=== PATIENT | female | born 1985 | race Caucasian/White ===

== ENCOUNTER 2017-01-29 08:17 | Emergency (ER) | payer MEDICAID ==
[~2017-01-29] VITALS: Ht 172.7 cm; Wt 86.6 kg
[~2017-01-29 08:17] MED LIST: CYCL1TAB29 PO; IBUP-232 PO
[2017-01-29 08:19] VITALS: BP 149/86; PULSE 87; RESP 16; TEMP 97.9; O2SAT 98
[2017-01-29] MEDS ORDERED: SODIUM CHLOR 0.9% 1000 ML INJ 1,000 ML IV ONE (08:55)
--- NOTE | 2017-01-29 09:00 | PD ---
HPI Chief Complaint: Related Problem Time Seen by Provider: 08:41 Travel History International Travel<30 days: No Contact w/Intl Traveler<30days: No Traveled to known affect area: No History of Present Illness HPI The patient is a 31-year-old female who presents emergency department for abdominal cramping and vaginal spotting in . The patient is a with one previous right sided ectopic requiring surgery. The patient's last menstrual cycle December 20, 2016. The patient had a positive at home test. The patient was sent from [place] emergency department to [place] for ultrasound to rule out ectopic . The patient denies any previous administration of RhoGAM. The patient does have a history of cervical cancer including cone biopsy and is currently being followed by a inside upholsterer in [place]. The patient does note mild spotting with lower abdominal cramping. She denies any dysuria, frequency, urgency, nausea, or vomiting. She denies any fever. Symptoms are moderate, there are no current alleviating factors, possibly exacerbated by . PFSH Past Medical History Cancer: Yes (CERVICAL) Diminished Hearing: No ?: LMP: 12/20/16 Ectopic : Yes Past Surgical History Section: Yes Cholecystectomy: Yes Gynecologic Surgery: Yes Social History Alcohol Use: No Tobacco Use: No Substance Use: No Allergies-Medications (Allergen,Severity, Reaction): Coded Allergies: No Known Allergies (Verified Allergy, Unknown, 01/29/17) Reported Meds & Prescriptions Reported Meds & Active Scripts Active Ibuprofen 600 Mg Tab 600 Mg PO Q8H PRN Review of Systems Except as stated in HPI: all other systems reviewed are Neg Cardiovascular: No: Chest Pain or Discomfort Respiratory: No: Shortness of Breath Gastrointestinal: Positive: Abdominal Pain (lower abdominal cramping), No: Nausea, Vomiting Genitourinary: Positive: Pelvic Pain (cramping), Vaginal Bleeding (spotting) Physical Exam Narrative GENERAL: Awake, alert, pleasant 31-year-old female who appears her stated age and is in no acute respiratory distress. SKIN: Focused skin assessment warm/dry. Multiple tattoos noted. HEAD: Atraumatic. Normocephalic. EYES: No injection or drainage. ENT: No nasal bleeding or discharge. Mucous membranes pink and moist. NECK: Trachea midline. No JVD. CARDIOVASCULAR: Regular rate and rhythm. No murmur appreciated. RESPIRATORY: No accessory muscle use. Clear to auscultation. Breath sounds equal bilaterally. GASTROINTESTINAL: Abdomen soft, non-tender, nondistended. No rebound tenderness. Back: No CVA tenderness. Pelvic: The patient deferred. MUSCULOSKELETAL: No obvious deformities. No clubbing. No cyanosis. No edema. NEUROLOGICAL: Awake and alert. No obvious cranial nerve deficits. Motor grossly within normal limits. Normal speech. PSYCHIATRIC: Appropriate mood and affect; insight and judgment normal. Data Data Last Documented VS Vital Signs Date Time Temp Pulse Resp B/P (MAP) Pulse Ox O2 Delivery O2 Flow Rate FiO2 01/29/17 08:19 97.9 87 16 149/86 (107) 98 Orders Orders Beta Hcg (Quant/Titer) (01/29/17 08:55) Complete Blood Count With Diff (01/29/17 08:55) Basic Metabolic Panel (Bmp) (01/29/17 08:55) Complete Rh (01/29/17 08:55) Us Pelvis (Ques Pr/Ect)W Trans (01/29/17 ) Urinalysis - C+S If Indicated (01/29/17 08:55) Iv Access Insert/Monitor (01/29/17 08:55) Sodium Chlor 0.9% 1000 Ml Inj (Ns 1000 M (01/29/17 08:55) Ed Urine Pregnancytest Poc (01/29/17 08:55) Ed Discharge Order (01/29/17 11:22) Labs Laboratory Tests Test 01/29/17 09:30 White Blood Count 9.9 TH/MM3 Red Blood Count 4.22 MIL/MM3 Hemoglobin 13.5 GM/DL Hematocrit 39.4 % Mean Corpuscular Volume 93.2 FL Mean Corpuscular Hemoglobin 32.1 PG Mean Corpuscular Hemoglobin Concent 34.4 % Red Cell Distribution Width 14.5 % Platelet Count 178 TH/MM3 Mean Platelet Volume 10.4 FL Neutrophils (%) (Auto) 76.8 % Lymphocytes (%) (Auto) 15.6 % Monocytes (%) (Auto) 5.9 % Eosinophils (%) (Auto) 1.4 % Basophils (%) (Auto) 0.3 % Neutrophils # (Auto) 7.6 TH/MM3 Lymphocytes # (Auto) 1.5 TH/MM3 Monocytes # (Auto) 0.6 TH/MM3 Eosinophils # (Auto) 0.1 TH/MM3 Basophils # (Auto) 0.0 TH/MM3 CBC Comment DIFF FINAL Differential Comment Urine Color YELLOW Urine Turbidity CLEAR Urine pH 6.0 Urine Specific [place] 1.007 Urine Protein NEG mg/dL Urine Glucose (UA) NEG mg/dL Urine Ketones NEG mg/dL Urine Occult Blood LARGE Urine Nitrite NEG Urine Bilirubin NEG Urine Urobilinogen LESS THAN 2.0 MG/DL Urine Leukocyte Esterase SMALL Urine RBC 19 /hpf Urine WBC 7 /hpf Urine Squamous Epithelial Cells 1 /hpf Urine Bacteria OCC /hpf Urine Hyaline Casts 1 /lpf Urine Mucus FEW /lpf Microscopic Urinalysis Comment CULT NOT INDICATED Blood Urea Nitrogen 5 MG/DL Creatinine 0.59 MG/DL Random Glucose 82 MG/DL Calcium Level 8.2 MG/DL Sodium Level 140 MEQ/L Potassium Level 3.6 MEQ/L Chloride Level 109 MEQ/L Carbon Dioxide Level 25.2 MEQ/L Anion Gap 6 MEQ/L Estimat Glomerular Filtration Rate 118 ML/MIN Human Chorionic Gonadotropin, Quant 45 MIU/ML MDM Medical Decision Making Medical Screen Exam Complete: Yes Emergency Medical Condition: Yes Medical Record Reviewed: Yes Interpretation(s) Laboratory Tests Test 01/29/17 09:30 White Blood Count 9.9 TH/MM3 Red Blood Count 4.22 MIL/MM3 Hemoglobin 13.5 GM/DL Hematocrit 39.4 % Mean Corpuscular Volume 93.2 FL Mean Corpuscular Hemoglobin 32.1 PG Mean Corpuscular Hemoglobin Concent 34.4 % Red Cell Distribution Width 14.5 % Platelet Count 178 TH/MM3 Mean Platelet Volume 10.4 FL Neutrophils (%) (Auto) 76.8 % Lymphocytes (%) (Auto) 15.6 % Monocytes (%) (Auto) 5.9 % Eosinophils (%) (Auto) 1.4 % Basophils (%) (Auto) 0.3 % Neutrophils # (Auto) 7.6 TH/MM3 Lymphocytes # (Auto) 1.5 TH/MM3 Monocytes # (Auto) 0.6 TH/MM3 Eosinophils # (Auto) 0.1 TH/MM3 Basophils # (Auto) 0.0 TH/MM3 CBC Comment DIFF FINAL Differential Comment Urine Color YELLOW Urine Turbidity CLEAR Urine pH 6.0 Urine Specific [place] 1.007 Urine Protein NEG mg/dL Urine Glucose (UA) NEG mg/dL Urine Ketones NEG mg/dL Urine Occult Blood LARGE Urine Nitrite NEG Urine Bilirubin NEG Urine Urobilinogen LESS THAN 2.0 MG/DL Urine Leukocyte Esterase SMALL Urine RBC 19 /hpf Urine WBC 7 /hpf Urine Squamous Epithelial Cells 1 /hpf Urine Bacteria OCC /hpf Urine Hyaline Casts 1 /lpf Urine Mucus FEW /lpf Microscopic Urinalysis Comment CULT NOT INDICATED Blood Urea Nitrogen 5 MG/DL Creatinine 0.59 MG/DL Random Glucose 82 MG/DL Calcium Level 8.2 MG/DL Sodium Level 140 MEQ/L Potassium Level 3.6 MEQ/L Chloride Level 109 MEQ/L Carbon Dioxide Level 25.2 MEQ/L Anion Gap 6 MEQ/L Estimat Glomerular Filtration Rate 118 ML/MIN Human Chorionic Gonadotropin, Quant 45 MIU/ML Differential Diagnosis Differential diagnosis includes , threatened AB, incomplete AB, ectopic , UTI, cervicitis, PID. Narrative Course IV was established, labs are drawn and sent, and the patient was placed on cardiac telemetry monitoring and continuous pulse oximetry monitoring. Bedside UA test was obtained. Ultrasound was ordered to rule out ectopic . The patient was administered IV fluids. The patient deferred a pelvic exam. Ultrasound does not reveal an IUP, does appear to be blood products in the cervical canal. Beta hCG was only 45. The patient is advised to have repeat beta hCG in 48-72 hours to evaluate if the numbers falling and consistent with spontaneous . The patient agrees and understands. The patient is a positive, therefore, no indication for RhoGAM. Diagnosis Primary Impression: Threatened Patient Instructions: General Instructions Additional Instructions: Please provide a patient a copy of her labs and ultrasound results at discharge. Repeat beta hCG in 48-72 hours. Return sooner symptoms worsen or progress. Med/Other Pt SpecificInfo: No Change to Meds Disposition: 01 DISCHARGE HOME Condition: Stable Isreal Willard MD Jan 29, 2017 09:00
[2017-01-29 10:04] LABS: AUTOMATED NEUTROPHIL # 7.6 TH/MM3 (1.8-7.7); BASOPHIL % 0.3 % (0.0-2.0); EOSINOPHIL # 0.1 TH/MM3 (0-0.4); EOSINOPHIL % 1.4 % (0.0-4.0); HEMATOCRIT 39.4 % (35.0-46.0); HEMOGLOBIN 13.5 GM/DL (11.6-15.3); LYMPH % 15.6 % (9.0-44.0); LYMPHOCYTE # 1.5 TH/MM3 (1.0-4.8); MEAN CELL VOLUME 93.2 FL (80.0-100.0); MEAN CORPUSCULAR HEMOGLOBIN 32.1 PG (27.0-34.0); MEAN CORPUSCULAR HGB CONC 34.4 % (32.0-36.0); MEAN PLATELET VOLUME 10.4 FL (7.0-11.0); MONO % 5.9 % (0.0-8.0); MONOCYTE # 0.6 TH/MM3 (0-0.9); NEUT % 76.8 % (16.0-70.0); PLATELET COUNT 178 TH/MM3 (150-450); RED BLOOD COUNT 4.22 MIL/MM3 (4.00-5.30); RED CELL DISTRIBUTION WIDTH 14.5 % (11.6-17.2); WHITE BLOOD COUNT 9.9 TH/MM3 (4.0-11.0)
[2017-01-29 10:07] LABS: BACTERIA, URINE OCC /hpf; BILIRUBIN, URINE NEG (NEG); BLOOD, URINE LARGE (NEG); GLUCOSE,URINE NEG (NEG); HYALINE CAST, URINE 1 /lpf (RARE); KETONE, URINE NEG (NEG); MUCUS URINE FEW /lpf (OCC); NITRITE,URINE NEG (NEG); SQUAMOUS EPITHELIAL CELL URINE 1 /hpf (0-5); URINE COLOR YELLOW (YELLW/STRAW); URINE LEUKOCYTE ESTERASE SMALL (NEG)
[2017-01-29 10:25] LABS: BICARBONATE 25.2 MEQ/L (21.0-32.0); CALCIUM 8.2 MG/DL (8.5-10.1); CREATININE 0.59 MG/DL (0.50-1.00)
--- NOTE | 2017-01-29 11:07 | RADRPT ---
EXAM DATE/TIME: 01/29/2017 10:06 [facility] COMPARISON: No previous studies available for comparison. INDICATIONS : Pelvic pain and bleeding with . LAB(S): Beta-hC MEDICAL HISTORY : Miscarriage x 3. Ectopic . Cervical cancer. SURGICAL HISTORY : section. Cholecystectomy. Cone biopsy. ENCOUNTER: Initial ACUITY: 1 day PAIN SCORE: 2/10 LOCATION: Bilateral pelvis MEASUREMENTS: UTERUS: 8.8 x 7.2 x 4.7 cm ENDOMETRIAL STRIPE: 12 mm RIGHT OVARY: 3.2 x 2.6 x 1.9 cm LEFT OVARY: 3.5 x 2.5 x 1.8 cm FREE FLUID: No CROWN RUMP LENGTH: Non visualized. = WKS DAYS FHR: Non visualized. BPM FINDINGS: UTERUS: Multiple small cysts in the region of the cervix measuring up to 3 mm consistent with nabothian cysts . Otherwise, no myometrial mass. The endometrial stripe is slightly heterogeneous and prominent. Smal l amount of heterogeneous fluid in the cervical canal. No definitive intrauterine gestational sac. RIGHT OVARY: Ovary contains no mass or significant cystic lesion. LEFT OVARY: Ovary contains no mass or significant cystic lesion. MISCELLANEOUS: No free fluid. CONCLUSION: 1. No definite intrauterine gestational sac or ectopic identified. Continued surveillance i s recommended. 2. Heterogeneously prominent endometrial stripe with small amount of heterogeneous fluid in the cervi jana canal which may reflect blood products. 3. No significant pelvic free fluid. Dutch Montiel MD on January 29, 2017 at 11:02 Board Certified Radiologist. This report was verified electronically.
[2017-01-29 11:37] VITALS: BP 124/78
== END 2017-01-29 11:52 | disposition home or self-care (01) ==
LOC: NEPE 08:17
DX: O20.0 Threatened abortion (principal)
CPT/HCPCS: 76700; 76817; 80048; 81001; 84702; 84703; 85025; 86901

== ENCOUNTER 2017-04-16 18:10 | Emergency (ER) | payer MEDICAID ==
[~2017-04-16 18:10] MED LIST changes: -CYCL1TAB29 PO
[2017-04-16 18:13] VITALS: BP 178/93; PULSE 106; RESP 16; TEMP 98.2; O2SAT 99
--- NOTE | 2017-04-16 20:50 | PD ---
HPI Chief Complaint: Musculoskeletal Complaint Time Seen by Provider: 18:25 Travel History International Travel<30 days: No Contact w/Intl Traveler<30days: No Traveled to known affect area: No History of Present Illness HPI Pt is a well-appearing 31-year-old female who is presenting to emergency department for evaluation of mid upper back pain that is between her shoulder blades bilaterally. She states the pain initially started in 2013. Patient states that her primary doctor has given her muscle relaxers, anti- inflammatories, pain medications but nothing alleviates her pain. Pain has not changed in nature but is more intense today. She denies any new injury or trauma. She denies any shortness of breath, chest pain, fever, chills, headache. Patient is not taking anything to alleviate the pain, she states nothing helps so she doesn't take any medicines. PFSH Past Medical History Cancer: Yes (CERVICAL) Diminished Hearing: No LMP: 03/28/17 Ectopic : Yes Past Surgical History Section: Yes Cholecystectomy: Yes Gynecologic Surgery: Yes Social History Alcohol Use: No Tobacco Use: No Substance Use: No Allergies-Medications (Allergen,Severity, Reaction): Coded Allergies: No Known Allergies (Verified Allergy, Unknown, 01/29/17) Reported Meds & Prescriptions Reported Meds & Active Scripts Active Ibuprofen 600 Mg Tab 600 Mg PO Q8H PRN Review of Systems Except as stated in HPI: all other systems reviewed are Neg Musculoskeletal: Positive: Myalgias, Arthralgias Physical Exam Narrative GENERAL: Well-developed, well-nourished, well-appearing female. Presenting in no acute distress. SKIN: Warm and dry. HEAD: Normocephalic. EYES: No scleral icterus. No injection or drainage. CARDIOVASCULAR: Mildly tachycardic RESPIRATORY: No accessory muscle use. Data Data Last Documented VS Vital Signs Date Time Temp Pulse Resp B/P (MAP) Pulse Ox O2 Delivery O2 Flow Rate FiO2 04/16/17 18:13 98.2 106 16 178/93 (121) 99 MDM Medical Decision Making Medical Screen Exam Complete: Yes Emergency Medical Condition: Yes Interpretation(s) Vital Signs Date Time Temp Pulse Resp B/P (MAP) Pulse Ox O2 Delivery O2 Flow Rate FiO2 04/16/17 18:13 98.2 106 16 178/93 (121) 99 Differential Diagnosis Sprain versus strain versus discogenic pain versus spasm versus other Narrative Course Patient's 31-year-old female presenting for evaluation of chronic back pain that was exacerbated this morning. There was no new injury or trauma. Patient is well-appearing, is mildly tachycardic on arrival however she is appears well. Patient is awaiting bed placement. Patient presented back to triage, she was upset at how long she had to wait. Patient was reassured that we were trying to get her as soon as possible however she continued to get verbally aggressive and then stormed out of the emergency department. AMA: The risks of leaving against medical advice without further evaluation treatment were discussed with the patient. These risks include cardiac dysfunction, cardiac dysrhythmia, possible heart attack, possible stroke or . The patient indicated understanding of these risks and appeared to have the capacity to make this decision. Diagnosis Primary Impression: Left against medical advice Neeta Simmons Apr 16, 2017 20:50
== END 2017-04-16 20:41 | disposition left against medical advice (07) ==
LOC: NED 18:10
DX: M54.9 Dorsalgia, unspecified (principal); G89.29 Other chronic pain; R00.0 Tachycardia, unspecified
CPT/HCPCS: 99281

== ENCOUNTER 2017-05-22 17:39 | Emergency (ER) | payer SELFPAY ==
[~2017-05-22] VITALS: Ht 172.7 cm; Wt 85.0 kg
[2017-05-22 17:41] VITALS: BP 171/95; PULSE 83; RESP 18; TEMP 98.5; O2SAT 98
--- NOTE | 2017-05-22 18:18 | RADRPT ---
EXAM DATE/TIME: 05/22/2017 18:05 [facility] COMPARISON: No previous studies available for comparison. INDICATIONS : Cough and congestion. MEDICAL HISTORY : Cervical cancer. SURGICAL HISTORY : None. ENCOUNTER: Initial ACUITY: 3 days PAIN SCORE: 0/10 LOCATION: Bilateral chest FINDINGS: PA and lateral views of the chest demonstrate the lungs to be symmetrically aerated without evidence of mass, infiltrate or effusion. The cardiomediastinal contours are unremarkable. Osseous structure s are intact. CONCLUSION: No acute disease. Vickey Dumont MD on May 22, 2017 at 18:16 Board Certified Radiologist. This report was verified electronically.
[2017-05-22 18:48] LABS: AUTOMATED NEUTROPHIL # 4.6 TH/MM3 (1.8-7.7); BASOPHIL % 0.4 % (0.0-2.0); EOSINOPHIL # 0.1 TH/MM3 (0-0.4); EOSINOPHIL % 1.5 % (0.0-4.0); HEMATOCRIT 37.8 % (35.0-46.0); LYMPH % 33.5 % (9.0-44.0); LYMPHOCYTE # 2.7 TH/MM3 (1.0-4.8); MEAN CELL VOLUME 89.8 FL (80.0-100.0); MEAN CORPUSCULAR HEMOGLOBIN 33.4 PG (27.0-34.0); MONO % 6.2 % (0.0-8.0); MONOCYTE # 0.5 TH/MM3 (0-0.9); NEUT % 58.4 % (16.0-70.0); PLATELET COUNT 204 TH/MM3 (150-450); RED CELL DISTRIBUTION WIDTH 15.4 % (11.6-17.2)
[2017-05-22 18:51] LABS: AMORPHOUS SEDIMENT, URINE RARE; BILIRUBIN, URINE NEG (NEG); BLOOD, URINE MOD (NEG); GLUCOSE,URINE NEG (NEG); KETONE, URINE NEG (NEG); MUCUS URINE FEW /lpf (OCC); NITRITE,URINE NEG (NEG); PH, URINE 6.5 (5.0-8.5); SQUAMOUS EPITHELIAL CELL URINE 1 /hpf (0-5); URINE COLOR YELLOW (YELLW/STRAW); URINE LEUKOCYTE ESTERASE NEG (NEG)
[2017-05-22 18:52] LABS: MEAN CORPUSCULAR HGB CONC 37.2 % (32.0-36.0)
[2017-05-22 19:26] LABS: CALCIUM 8.3 MG/DL (8.5-10.1); CREATININE 0.75 MG/DL (0.50-1.00)
[2017-05-22 19:34] LABS: BANDS 2 % (0-6); BASOPHILS 1 % (0-2); LYMPHOCYTES 14 % (9-44); NEUTROPHIL # MANUAL DIFF 6.6 TH/MM3 (1.8-7.7); POLYS (SEG NEUTROPHILS) 81 % (16-70)
[2017-05-22 19:35] LABS: SPHEROCYTES OCC (NORMAL); TOXIC GRANULATION 2+ (NORMAL)
[2017-05-22] MEDS ORDERED: OSELTAMIVIR PHOSPHATE 75 MG CAP PO ONE (19:45)
[2017-05-22] MEDS ORDERED: OSEL75 PO (19:46)
--- NOTE | 2017-05-22 19:46 | PD ---
HPI Chief Complaint: Cold / Flu Symptoms Time Seen by Provider: 19:24 Travel History International Travel<30 days: No Contact w/Intl Traveler<30days: No Traveled to known affect area: No History of Present Illness HPI 31-year-old female here for evaluation of flulike symptoms for 1 week. She has children at home that tested positive for influenza B last week. She has had a cough, chills, fatigue, diarrhea. She has been taking DayQuil and TheraFlu without relief of symptoms. Cough is nonproductive. No vomiting or abdominal pain. PFSH Past Medical History Cancer: Yes (CERVICAL) Diminished Hearing: No Ectopic : Yes Past Surgical History Section: Yes Cholecystectomy: Yes Gynecologic Surgery: Yes Social History Alcohol Use: No Tobacco Use: No Substance Use: No Allergies-Medications (Allergen,Severity, Reaction): Coded Allergies: No Known Allergies (Verified Allergy, Unknown, 01/29/17) Reported Meds & Prescriptions Reported Meds & Active Scripts Active Ibuprofen 600 Mg Tab 600 Mg PO Q8H PRN Review of Systems Except as stated in HPI: all other systems reviewed are Neg Physical Exam Narrative GENERAL: Well-developed, well-nourished, comfortable, no apparent distress. SKIN: Focused skin assessment warm/dry. No rash. HEAD: Atraumatic. Normocephalic. EYES: Pupils equal and round. No scleral icterus. No injection or drainage. ENT: Mucous membranes pink and moist. NECK: Trachea midline. No JVD. No nuchal rigidity. CARDIOVASCULAR: Regular rate and rhythm. No murmur appreciated. RESPIRATORY: No accessory muscle use. Clear to auscultation. Breath sounds equal bilaterally. GASTROINTESTINAL: Abdomen soft, non-tender, nondistended. Hepatic and splenic margins not palpable. MUSCULOSKELETAL: No obvious deformities. No clubbing. No cyanosis. No edema. NEUROLOGICAL: Awake and alert. No obvious cranial nerve deficits. Motor grossly within normal limits. Normal speech. PSYCHIATRIC: Appropriate mood and affect; insight and judgment normal. Data Data Last Documented VS Vital Signs Date Time Temp Pulse Resp B/P (MAP) Pulse Ox O2 Delivery O2 Flow Rate FiO2 05/22/17 17:41 98.5 83 18 171/95 (120) 98 Room Air Orders Orders Complete Blood Count With Diff (05/22/17 17:53) Basic Metabolic Panel (Bmp) (05/22/17 17:53) Urinalysis - C+S If Indicated (05/22/17 17:53) Ed Urine Pregnancytest Poc (05/22/17 17:53) Influenzae A/B Antigen (05/22/17 17:53) Chest, Pa & Lat (05/22/17 ) Oseltamivir (Tamiflu) (05/22/17 19:45) Labs Laboratory Tests Test 05/22/17 18:01 05/22/17 18:15 White Blood Count 8.0 TH/MM3 Red Blood Count 4.20 MIL/MM3 Hemoglobin 14.0 GM/DL Hematocrit 37.8 % Mean Corpuscular Volume 89.8 FL Mean Corpuscular Hemoglobin 33.4 PG Mean Corpuscular Hemoglobin Concent 37.2 % Red Cell Distribution Width 15.4 % Platelet Count 204 TH/MM3 Mean Platelet Volume 10.0 FL Neutrophils (%) (Auto) 58.4 % Lymphocytes (%) (Auto) 33.5 % Monocytes (%) (Auto) 6.2 % Eosinophils (%) (Auto) 1.5 % Basophils (%) (Auto) 0.4 % Neutrophils # (Auto) 4.6 TH/MM3 Lymphocytes # (Auto) 2.7 TH/MM3 Monocytes # (Auto) 0.5 TH/MM3 Eosinophils # (Auto) 0.1 TH/MM3 Basophils # (Auto) 0.0 TH/MM3 CBC Comment AUTO DIFF Differential Total Cells Counted 100 Neutrophils % (Manual) 81 % Band Neutrophils % 2 % Lymphocytes % 14 % Eosinophils % 2 % Basophils % 1 % Neutrophils # (Manual) 6.6 TH/MM3 Differential Comment FINAL DIFF MANUAL Toxic Granulation 2+ Platelet Estimate NORMAL Platelet Morphology Comment NORMAL Basophilic Stippling FAINT Spherocytes OCC Blood Urea Nitrogen 10 MG/DL Creatinine 0.75 MG/DL Random Glucose 112 MG/DL Calcium Level 8.3 MG/DL Sodium Level 136 MEQ/L Potassium Level 4.1 MEQ/L Chloride Level 102 MEQ/L Carbon Dioxide Level 22.0 MEQ/L Anion Gap 12 MEQ/L Estimat Glomerular Filtration Rate 90 ML/MIN Urine Color YELLOW Urine Turbidity HAZY Urine pH 6.5 Urine Specific [place] 1.023 Urine Protein TRACE mg/dL Urine Glucose (UA) NEG mg/dL Urine Ketones NEG mg/dL Urine Occult Blood MOD Urine Nitrite NEG Urine Bilirubin NEG Urine Urobilinogen LESS THAN 2.0 MG/DL Urine Leukocyte Esterase NEG Urine RBC 11 /hpf Urine WBC LESS THAN 1 /hpf Urine Squamous Epithelial Cells 1 /hpf Urine Amorphous Sediment RARE Urine Mucus FEW /lpf Microscopic Urinalysis Comment CULT NOT INDICATED MDM Medical Decision Making Medical Screen Exam Complete: Yes Emergency Medical Condition: Yes Differential Diagnosis Influenza, viral illness, URI, dehydration, metabolic abnormality Narrative Course Initial vital signs show Blood pressure 171/95, pulse ox 98% on room air, oral temp of 98.5F. CBC: WBC 8, hemoglobin 14, hematocrit 37.8, platelets 204 BMP is unremarkable. UA shows moderate occult blood with 11 RBCs. The patient is currently on her menstrual period. Influenza is negative. Chest x-ray shows no acute disease. The patient was made aware of all findings. She is resting comfortably. She has family members at home that tested positive for influenza B and she is expecting flulike symptoms. She'll be started on Tamiflu. She was advised to stay hydrated with plenty of fluids and follow-up with a primary care physician this week. She was informed on when to return to the emergency department. She verbalizes understanding and agreement with plan. Diagnosis Primary Impression: Influenza-like illness Referrals: Primary Care Physician 3 days Additional Instructions: Follow-up with a primary care physician this week. Return to the emergency department for worsening symptoms or any other concerns. Scripts Oseltamivir (Tamiflu) 75 Mg Cap 75 MG PO BID for Mgmt Viral Infection for 5 Days, #10 CAP 0 Refills Prov: Hector Kenney MD 05/22/17 Disposition: 01 DISCHARGE HOME Condition: Stable Hector Kenney MD May 22, 2017 19:46
== END 2017-05-22 20:17 | disposition home or self-care (01) ==
LOC: NEPD 17:39
DX: R05 Cough (principal); R19.7 Diarrhea, unspecified; R53.83 Other fatigue
CPT/HCPCS: 71046; 80048; 81001; 84703; 85007; 85027; 87804; 99284